=== PATIENT | male | born 1955 | race African-American/Black ===

== ENCOUNTER 2016-06-09 11:14 | Outpatient (CLI) | payer MEDICARE ==
[2016-06-09 17:00] LABS: Band 2 % (5-11); Eosinophils 2 % (0-10); Hemoglobin 13.5 g/dL (14.0-18.0); Lymphocytes 26 % (21-51); MDiff Complete? YES; Mean Corpuscular Hemoglobin 25.9 pg (27.0-31.0); Mean Corpuscular Volume 83.3 fl (80.0-94.0); Mean Platelet Volume 10.4 fL (7.4-10.4); Monocytes 9 % (0-10); Neutrophil 61 % (42-75); Platelet Count 186 thou/uL (130-400); RBC Distribution Width 13.9 % (11.5-14.5); Red Blood Cell (RBC) Count 5.22 mill/uL (4.70-6.10); White Blood Cell (WBC) Count 6.5 thou/uL (4.8-10.8)
[2016-06-09 17:22] LABS: ALT (SGPT) 32 U/L (0-55); AST (SGOT) 22 U/L (5-34); Albumin 4.3 g/dL (3.5-5.0); Alkaline Phosphatase 61 U/L (40-150); Anion Gap 13 mmol/L (10-20); BUN (Urea Nitrogen) 16 mg/dL (8.4-25.7); Bilirubin, Total 0.4 mg/dL (0.2-1.2); Calc. Creatinine Clearance 0 mL/min (70-130); Carbon Dioxide 28 mmol/L (22-29); Chloride 108 mmol/L (98-107); Estimated GFR-MDRD 66; Globulin 2.6 g/dL (2.4-3.5); Glucose 99 mg/dL (70-105); Protein, Total 6.9 g/dL (6.0-8.3); Sodium 145 mmol/L (136-145)
== END 2016-06-09 11:15 | disposition home or self-care (01) ==
LOC: LABLEX 11:14
PROVIDERS: ATTEND Family Medicine
DX: Z12.5 Encounter for screening for malignant neoplasm of prostate (principal); I10 Essential (primary) hypertension; N28.9 Disorder of kidney and ureter, unspecified
CPT/HCPCS: 80053; 85025; G0103

== ENCOUNTER 2016-12-14 08:27 | Outpatient (CLI) | payer OTHER ==
--- NOTE | 2016-12-14 21:56 | RAD ---
LEFT KNEE FOUR VIEWS: 12/14/16 No fracture or joint effusion was seen. The medial joint space is minimally narrowed. There are no s ignificant osteophytes. Minimal periosteal prominence of the proximal tibia is just like the other k nee, so is probably not significant. There is a small metallic foreign body seen in the soft tissue through the medial distal thigh. Arterial calcifications are evident. IMPRESSION: Minor arthritic changes. POS: HOME
--- NOTE | 2016-12-14 22:33 | RAD ---
RIGHT SHOULDER THREE VIEWS 12/14/16 No fracture, dislocation, or AC joint widening was seen. The visible adjacent ribs appear clear. Some of the cortex of the distal clavicular shaft is slightly indistinct. Sometimes this can signify a stress injury and other times it is the residual from old trauma. If there is tenderness to the d istal clavicle about an inch or two short of the AC joint, Then a followup study in a week or two co uld be useful. If there is no real pain here, I would take it as an old finding. IMPRESSION: Probably no acute findings but see comments about distal clavicle. POS: HOME
== END 2016-12-14 08:28 | disposition home or self-care (01) ==
LOC: BURRAD 08:27
PROVIDERS: ATTEND Nurse Practitioner
DX: M17.0 Bilateral primary osteoarthritis of knee (principal)